=== PATIENT | female | born 1995 | race Caucasian/White ===

== ENCOUNTER 2024-09-05 00:16 | Inpatient (IN) ==
[2024-09-05] MEDS ORDERED: OXYTOCIN 30 UNITS/NSS 30 UNITS/500 ML BAG IV PRN ×2 (00:31→14:09)
[2024-09-05] MEDS ORDERED: LIDOCAINE 1% LOCAL 20 ML VIAL INFIL PRN (00:31)
--- NOTE | 2024-09-05 00:35 | History & Physical Report ---
Date of Service September 05, 2024 Assessment & Plan (1) Encounter for supervision of normal intrauterine in primigravida, antepartum: Plan: Admit to L&D. EFM/toco. Labs. OK for epidural. Admission and Anticipated Discharge Date Admission Date: September 05, 2024 History of Present Illness Chief Complaint: contractions Primary Care Provider: Anita Velasquez 29yo @ 38 08/07, came to L&D with contractions. Acevedo bulb was placed last evening in advance for IOL later today. Acevedo fell out, she is feeling ctx Q 2 minutes. No leaking. No bleeding. + movement. Allergies Allergy/AdvReac Type Severity Reaction Status Date / Time No Known Allergies Allergy Verified 09/04/24 19:53 Home Medications Medication Instructions Recorded Confirmed Type No Known Home Medications 09/04/24 09/04/24 History Patient History Medical History Chicken pox Pharyngitis Surgical History No pertinent past surgical history Family History Denies family history of Ovarian cancer Breast cancer Colorectal cancer Social History Smoking Status: Former smoker Tobacco Type: E-cigarettes / Vaping Second Hand Exposure: No; Do You Dip or Chew Tobacco: No; Hx Alcohol Use: No Hx Substance Use: No Preferred Language: [place] Line Prep [employer] Required: No Beliefs That Will Affect Care: None marital status: marital status details: Ilda [facility] (27) [phone] Current Living Situation: Spouse Current Living Situation Comment: -Ilda current occupational status: employed current occupation: [employer] Feels Safe at Home: Yes Review of Systems All systems reviewed & are unremarkable except as noted in HPI & below Physical Exam Physical Exam: FHT Cat 1 [place] Q 2 - 4 SVE 4cm per RN exam Constitutional: WD/WN, vitals as above Respiratory: normal respiratory effort, lungs clear to auscultation no respiratory distress Cardiovascular: Rate/Rhythm: regular rate and regular rhythm Gastrointestinal (Abdomen): Inspection/Auscultation: abdomen normal to inspection Percussion/Palpation: abdomen soft; abdomen nontender Gravid. No s/s chorio or abruption. Skin: no rashes, warm and dry Psychiatric: A+Ox3, euthymic affect Results & Data Vital Signs (Past 12 Hours) Vital Signs Pulse BP 09/05/24 00:32 103 H 128/79 Coding Level of Care Code None Diagnoses Encounter for supervision of normal intrauterine in primigravida, antepartum Z34.00
[2024-09-05 00:55] LABS: Hematocrit (blood only) 34.8 % (37.0-47.0); Hemoglobin 11.7 g/dl (12.0-16.0); Mean Corpuscular Hemoglobin 28.3 pg (25.0-34.0); Mean Corpuscular Hgb Conc 33.6 g/dL (32.0-36.0); Mean Corpuscular Volume 84.3 fL (80.0-100.0); Mean Platelet Volume 11.5 fL (9.4-12.4); Platelet Count 202 K/uL (130-400); RDW Coefficient of Variation 13.3 % (11.5-14.5); RDW Standard Deviation 40.7 fL (36.4-46.3); Red Blood Count 4.13 M/uL (4.20-5.40)
[2024-09-05] MEDS ORDERED: ePHEDrine sulfate 50 MG/ML AMP IV PRN (01:01)
[2024-09-05] MEDS ORDERED: NALOXONE HCL 0.4 MG/1 ML VIAL/CARP IV PRN (01:01)
[2024-09-05] MEDS ORDERED: NALOXONE HCL 1 MG in SODIUM CHLORIDE 0.9% 1,000 ML IV PRN (01:01)
[2024-09-05] MEDS ORDERED: ROPIVACAINE 0.5% PF 5 MG/ML 20 ML VIAL EPI PRN (01:01)
[2024-09-05] MEDS ORDERED: NALBUPHINE HCL INJ 10 MG/ML AMP IV PRN (01:01)
[2024-09-05] MEDS ORDERED: SODIUM CHLORIDE 0.9% PF INJ 10 ML VIAL EPI PRN (01:01)
[2024-09-05] MEDS ORDERED: fentaNYL citrate PF 100 MCG/2 ML VIAL EPI PRN (01:01)
[2024-09-05] MEDS ORDERED: diphenhydrAMINE 50 MG/ML VIAL IV PRN (01:01)
[2024-09-05] MEDS ORDERED: BUPIVACAINE 0.25% PF 30 ML VIAL EPI PRN (01:01)
[2024-09-05] MEDS ORDERED: LIDOCAINE 2% MPF LOCAL 5 ML VIAL EPI PRN (01:01)
--- NOTE | 2024-09-05 01:03 | Anesthesiology Consultation ---
Date of Service September 05, 2024 Assessment & Plan (1) Encounter for pre-operative examination: Chart Review Chart Review: Patient NOT seen in Pre Admission Testing and Acceptable Risk for Labor Epidural Consults Requested none History Height/Weight Height: 5 ft 9 in Weight: 97.522 kg Allergies Allergy/AdvReac Type Severity Reaction Status Date / Time No Known Allergies Allergy Verified 09/04/24 19:53 Medications Home Medications Medication Instructions Recorded Confirmed Last Taken No Known Home Medications 09/04/24 09/04/24 Unknown Past Medical History Medical History (Updated 09/05/24 @ 01:03 by Tucker Brown MD) Encounter for pre-operative examination Chicken pox Pharyngitis Exercise / Class Metabolic Activity II 4-5 Yardwork/Stairs/Walk up hill Past Family History Family History Denies family history of Ovarian cancer Breast cancer Colorectal cancer Past Surgical History Surgical History No pertinent past surgical history Past Anesthesia History No Hx of Anesthesia Complications and No Family Hx of Anesthesia Complications Social History Smoking Status: Former smoker Do You Dip or Chew Tobacco: No Hx Alcohol Use: No Hx Substance Use: No substance use type: does not use Physical Exam Vital Signs Last Vital Signs Temp 36.8 C 09/05/24 00:36 Pulse 115 H 09/05/24 01:24 Resp 18 09/05/24 00:36 BP 119/75 09/05/24 01:24 Pulse Ox 97 09/05/24 01:21 O2 Del Method Room Air 09/05/24 00:36 Testing Laboratory Results 09/05/24 00:39
[2024-09-05] MEDS ORDERED: SODIUM CHLORIDE 0.9% 50 ML BAG IV STA (01:14)
[2024-09-05] MEDS: fentaNYL citrate PF 100 MCG/2 ML VIAL ONE (01:26)
[2024-09-05] MEDS: BUPIVACAINE 0.25% PF 30 ML VIAL ONE (01:27)
[2024-09-05] MEDS: LIDOCAINE 2%/EPINEPHRINE 1:200,000 20 ML PF ONE (01:28)
[2024-09-05] MEDS: SODIUM CHLORIDE 0.9% 1,000 ML IV SCH (01:30)
[2024-09-05] MEDS: fentANYL 2 MCG/ML BUPIVacaine 0.125%-NSS 100ML BAG ONE (01:37)
[2024-09-05] MEDS: ONDANSETRON INJ 2 MG/ML 2 ML VIAL IV PRN (02:32)
[2024-09-05] MEDS: ePHEDrine sulfate 50 MG/ML AMP ONE (06:26)
[2024-09-05] MEDS: SODIUM CHLORIDE 0.9% PF INJ 10 ML VIAL ONE (06:27)
[2024-09-05] MEDS: fentaNYL citrate PF 100 MCG/2 ML VIAL EPI STA (08:22)
[2024-09-05] MEDS: LIDOCAINE 2%/EPINEPHRINE 1:200,000 20 ML PF EPI STA (08:22)
[2024-09-05] MEDS: BUPIVACAINE 0.25% PF 30 ML VIAL EPI STA (08:22)
[2024-09-05] MEDS: SODIUM CHLORIDE 0.9% PF INJ 10 ML VIAL EPI STA (08:23)
[2024-09-05] MEDS: OXYTOCIN 30 UNITS/NSS 30 UNITS/500 ML BAG IV PRN (08:32)
--- NOTE | 2024-09-05 09:09 | Labor Progress Brief Note ---
Date of Service September 05, 2024 Subjective pt comfortable Assessment & Plan (1) Normal labor: Plan: will see how arom helps labor, c/w pit. fhts categ 1. Admission and Anticipated Discharge Date Admission Date: September 05, 2024 Physical Exam Constitutional: WD/WN, vitals as above Genitourinary: Manual OB Exam: + cervical dilation 5 cm, + cervical effacement 90%, + station -1 and + amniotic fluid (arom) clear OB Exam Monitor Tracing: + external FHT monitor used, + external uterine monitor used (q8, pit at 1), + category I and + normal FHT variability Results & Data Vital Signs (Past 12 Hours) Vital Signs Temp Pulse Resp BP Pulse Ox O2 Del Method 09/05/24 09:01 100 09/05/24 09:01 86 09/05/24 09:01 85 09/05/24 09:01 126/70 09/05/24 08:56 99 09/05/24 08:56 94 H 09/05/24 08:51 100 09/05/24 08:51 85 09/05/24 08:46 100 09/05/24 08:46 85 09/05/24 08:46 85 09/05/24 08:46 128/70 09/05/24 08:41 100 09/05/24 08:41 86 09/05/24 08:36 100 09/05/24 08:36 87 09/05/24 08:31 100 09/05/24 08:31 93 H 09/05/24 08:30 94 H 09/05/24 08:30 132/79 09/05/24 08:26 100 09/05/24 08:26 90 09/05/24 08:21 99 09/05/24 08:21 88 09/05/24 08:16 99 09/05/24 08:16 88 09/05/24 08:15 92 H 09/05/24 08:15 118/64 09/05/24 08:11 98 09/05/24 08:11 85 09/05/24 08:06 100 09/05/24 08:06 84 09/05/24 08:02 86 09/05/24 08:02 124/69 09/05/24 08:01 99 09/05/24 08:01 86 09/05/24 08:00 16 09/05/24 08:00 16 09/05/24 07:56 99 09/05/24 07:56 84 09/05/24 07:51 100 09/05/24 07:51 79 09/05/24 07:46 100 09/05/24 07:46 82 09/05/24 07:46 81 09/05/24 07:46 120/66 09/05/24 07:41 100 09/05/24 07:41 82 09/05/24 07:36 100 09/05/24 07:36 88 09/05/24 07:31 100 09/05/24 07:31 93 H 09/05/24 07:30 89 09/05/24 07:30 127/74 09/05/24 07:26 100 09/05/24 07:26 96 H 09/05/24 07:21 100 09/05/24 07:21 95 H 09/05/24 07:18 Room Air 09/05/24 07:17 18 09/05/24 07:17 98.4 F 18 09/05/24 07:16 100 09/05/24 07:16 85 09/05/24 07:16 82 09/05/24 07:16 131/68 09/05/24 07:11 100 09/05/24 07:11 81 09/05/24 07:06 100 09/05/24 07:06 84 09/05/24 07:01 100 09/05/24 07:01 85 09/05/24 07:01 126/70 09/05/24 06:56 100 09/05/24 06:56 94 H 09/05/24 06:51 100 09/05/24 06:51 89 09/05/24 06:46 100 09/05/24 06:46 91 H 09/05/24 06:46 90 09/05/24 06:46 125/69 09/05/24 06:41 100 09/05/24 06:41 78 09/05/24 06:36 100 09/05/24 06:36 80 09/05/24 06:31 100 09/05/24 06:31 90 09/05/24 06:31 121/69 09/05/24 06:26 99 09/05/24 06:26 88 09/05/24 06:21 99 09/05/24 06:21 80 09/05/24 06:16 99 09/05/24 06:16 93 H 09/05/24 06:15 94 H 09/05/24 06:15 118/75 09/05/24 06:11 98 09/05/24 06:11 92 H 09/05/24 06:07 16 09/05/24 06:07 98.2 F 16 09/05/24 06:06 99 09/05/24 06:06 103 H 09/05/24 06:01 98 09/05/24 06:01 86 09/05/24 06:00 81 09/05/24 06:00 114/67 09/05/24 05:56 98 09/05/24 05:56 90 09/05/24 05:51 98 09/05/24 05:51 81 09/05/24 05:46 97 09/05/24 05:46 81 09/05/24 05:45 88 09/05/24 05:45 112/68 09/05/24 05:41 97 09/05/24 05:41 76 09/05/24 05:36 97 09/05/24 05:36 86 09/05/24 05:31 98 09/05/24 05:31 84 09/05/24 05:30 85 09/05/24 05:30 114/09/05/24 05:26 98 09/05/24 05:26 80 09/05/24 05:21 97 09/05/24 05:21 85 09/05/24 05:16 98 09/05/24 05:16 80 09/05/24 05:16 110/66 09/05/24 05:11 97 09/05/24 05:11 88 09/05/24 05:06 97 09/05/24 05:06 89 09/05/24 05:01 97 09/05/24 05:01 80 09/05/24 05:01 88 09/05/24 05:01 112/56 L 09/05/24 04:56 97 09/05/24 04:56 91 H 09/05/24 04:51 97 09/05/24 04:51 86 09/05/24 04:46 97 09/05/24 04:46 83 09/05/24 04:45 86 09/05/24 04:45 108/64 09/05/24 04:41 97 09/05/24 04:41 86 09/05/24 04:36 98 09/05/24 04:36 88 09/05/24 04:31 97 09/05/24 04:31 89 09/05/24 04:29 93 H 09/05/24 04:29 107/63 09/05/24 04:26 98 09/05/24 04:26 89 09/05/24 04:21 98 09/05/24 04:21 93 H 09/05/24 04:16 98 09/05/24 04:16 89 09/05/24 04:14 95 H 09/05/24 04:14 107/55 L 09/05/24 04:11 96 09/05/24 04:11 89 09/05/24 04:06 97 09/05/24 04:06 94 H 09/05/24 04:01 97 09/05/24 04:01 88 09/05/24 04:01 118/71 09/05/24 03:56 98 09/05/24 03:56 95 H 09/05/24 03:51 97 09/05/24 03:51 78 09/05/24 03:46 98 09/05/24 03:46 81 09/05/24 03:45 89 09/05/24 03:45 120/67 09/05/24 03:41 97 09/05/24 03:41 92 H 09/05/24 03:36 97 09/05/24 03:36 92 H 09/05/24 03:31 97 09/05/24 03:31 92 H 09/05/24 03:29 93 H 09/05/24 03:29 119/69 09/05/24 03:26 97 09/05/24 03:26 85 09/05/24 03:21 97 09/05/24 03:21 85 09/05/24 03:16 97 09/05/24 03:16 81 09/05/24 03:14 105 H 09/05/24 03:14 118/66 09/05/24 03:11 97 09/05/24 03:11 90 09/05/24 03:06 97 09/05/24 03:06 86 09/05/24 03:01 96 09/05/24 03:01 85 09/05/24 02:59 97 H 09/05/24 02:59 122/64 09/05/24 02:56 97 09/05/24 02:56 96 H 09/05/24 02:51 97 09/05/24 02:51 95 H 09/05/24 02:46 97 09/05/24 02:46 91 H 09/05/24 02:46 126/71 09/05/24 02:41 98 09/05/24 02:41 104 H 09/05/24 02:36 99 09/05/24 02:36 96 H 09/05/24 02:31 99 09/05/24 02:31 98 H 09/05/24 02:30 114 H 09/05/24 02:30 114/68 09/05/24 02:26 98 09/05/24 02:26 96 H 09/05/24 02:21 99 09/05/24 02:21 100 H 09/05/24 02:20 16 09/05/24 02:20 98.4 F 16 09/05/24 02:16 98 09/05/24 02:16 108 H 09/05/24 02:11 97 09/05/24 02:11 101 H 09/05/24 02:11 116/61 09/05/24 02:06 97 09/05/24 02:06 95 H 09/05/24 02:05 98 H 09/05/24 02:05 118/62 09/05/24 02:01 96 09/05/24 02:01 95 H 09/05/24 02:00 94 H 09/05/24 02:00 118/64 09/05/24 01:56 98 09/05/24 01:56 105 H 09/05/24 01:55 99 H 09/05/24 01:55 124/66 09/05/24 01:51 97 09/05/24 01:51 100 H 09/05/24 01:49 96 H 09/05/24 01:49 125/67 09/05/24 01:46 98 09/05/24 01:46 104 H 09/05/24 01:44 101 H 09/05/24 01:44 119/59 L 09/05/24 01:42 106 H 09/05/24 01:42 120/56 L 09/05/24 01:41 98 09/05/24 01:41 106 H 09/05/24 01:40 101 H 09/05/24 01:40 124/60 09/05/24 01:38 107 H 09/05/24 01:38 118/62 09/05/24 01:36 97 09/05/24 01:36 109 H 09/05/24 01:36 121/61 09/05/24 01:34 104 H 09/05/24 01:34 128/64 09/05/24 01:32 112 H 09/05/24 01:32 127/70 09/05/24 01:31 97 09/05/24 01:31 106 H 09/05/24 01:30 105 H 09/05/24 01:30 127/71 09/05/24 01:28 110 H 09/05/24 01:28 123/76 09/05/24 01:26 98 09/05/24 01:26 113 H 09/05/24 01:26 104 H 09/05/24 01:26 123/76 09/05/24 01:24 115 H 09/05/24 01:24 119/75 09/05/24 01:21 97 09/05/24 01:21 102 H 09/05/24 01:16 98 09/05/24 01:16 108 H 09/05/24 01:11 99 09/05/24 01:11 105 H 09/05/24 01:06 98 09/05/24 01:06 100 H 09/05/24 01:01 100 09/05/24 01:01 101 H 09/05/24 00:36 98.2 F 103 H 18 128/79 Room Air 09/05/24 00:32 98.2 F 103 H 18 128/79 Coding Level of Care Code None Diagnoses Normal labor O80; Z37.9
[2024-09-05] MEDS: fentANYL 2 MCG/ML BUPIVacaine 0.125%-NSS 100ML BAG EPI PRN (10:46)
[2024-09-05] MEDS ORDERED: NURSING L&D Epidural Breakthrough Pain Update ONE (11:20)
--- NOTE | 2024-09-05 14:06 | Delivery Summary ---
Vaginal Delivery Summary Date of Service September 05, 2024 Vaginal Delivery Summary and 3rd Degree LAC (partial) The patient dilated to complete and pushed to deliver a viable female Apgars 8 and 9 via over partial 3rd degree perineal laceration. Loose nuchal x 1 reduced. Mouth and nose bulb suctioned at perineum. Shoulders and body delivered with ease. was vigorous and crying at . Cord clamped at 30 seconds of life and to maternal abdomen where the cord was then doubly clamped and cut. Placenta delivered spontaneously and intact, three- vessel cord. Hemostasis achieved with dilute pitocin and uterine massage and drainage of the bladder for approximately 100 cc under sterile conditions. Laceration repaired in layers in routine fashion with 2-0 and 3-0 vicryl. Right labia tear reapproximated with 4-0 vicryl. Cervix and sulci intact. QBL 309 cc. Mother and baby stable recovery. [facility] [place]aginal Delivery Charge Delivery Type Details: and 3rd Degree LAC (partial)
[2024-09-05] MEDS ORDERED: HYDROCORTISONE ACETATE 25 MG SUPP PR PRN (14:09)
[2024-09-05] MEDS ORDERED: oxyCODONE/ACETAMINOPHEN 5mg/325mg TAB PO PRN (14:09)
[2024-09-05] MEDS: DIPHTHER/TETAN/PERTUS Vaccine (Tdap, Adol/Adult) 0.5mL IM ONE (15:22)
--- NOTE | 2024-09-05 15:29 | Anesthesia Procedure Note ---
Date of Service September 05, 2024 Anesthesia Post Epidural Note Vital Signs Vital Signs: Temp Pulse Resp BP Pulse Ox O2 Del Method 36.9 C 81 16 132/70 99 Room Air 09/05/24 15:05 09/05/24 15:21 09/05/24 15:05 09/05/24 15:21 09/05/24 15:01 09/05/24 07:18 Pain Intensity Back: Pain Intensity: 0 Notes Mental Status: alert / awake / arousable and participated in evaluation Nausea / Vomiting: adequately controlled Pain: adequately controlled Airway Patency, RR, SpO2: stable & adequate BP & HR: stable & adequate Hydration State: stable & adequate Neuraxial Anesthesia: was administered and sensory block resolved Anesthetic Complications: no major complications apparent and Pt Satisfied with anesthetic care Epidural: Removed without complications and With tip intact
[2024-09-05] MEDS: BENZOCAINE 20% SPRY 85 APPLN/85 GM CAN EXT PRN (16:26)
[2024-09-05] MEDS: ACETAMINOPHEN 325 MG TAB PO PRN (19:55)
[2024-09-05] MEDS: IBUPROFEN 600 MG TAB PO PRN (19:55)
[2024-09-05] MEDS: DOCUSATE SODIUM 100 MG CAP PO SCH (21:21)
--- NOTE | 2024-09-06 07:46 | Obstetrical Progress Note ---
Date of Service September 06, 2024 Assessment & Plan (1) care and examination: Plan stable, routine care. breast feeding, rhpos, ri. Subjective Ambulation: ambulating normally Voiding: no voiding problems Diet Tolerance:: regular diet Lochia:: Small Feeding Type:: breast feeding bottom sore Physical Exam Constitutional WD/WN, vitals as above Respiratory normal respiratory effort, lungs clear to auscultation Cardiovascular Rate/Rhythm: regular rate and regular rhythm Gastrointestinal (Abdomen) Inspection/Auscultation: abdomen normal to inspection Percussion/Palpation: abdomen soft Fundus firm 2cm down Musculoskeletal nt calves no edema Neurologic grossly normal Psychiatric A+Ox3, euthymic affect Results & Data Vital Signs (Past 12 Hours) Vital Signs Temp Pulse Resp BP Pulse Ox O2 Del Method 09/06/24 05:00 98.2 F 68 18 122/70 98 Room Air 09/06/24 00:00 97.9 F 79 16 116/71 98 Room Air
[2024-09-06] MEDS: PRENATAL VITAMIN 1 TAB PO SCH (08:37)
[2024-09-06 16:49] VITALS: O2SAT 98
[2024-09-06] MEDS: bisacodyL 5 MG TABEC PO SCH (20:08)
--- NOTE | 2024-09-07 07:33 | Obstetrical Progress Note ---
Date of Service September 07, 2024 Assessment & Plan (1) Vaginal delivery: Plan: Both mom and baby doing well. Discharge today as per protocol. Suggested to continue Miralax for another week. Keep stool soft. Admission and Anticipated Discharge Date Admission Date: September 05, 2024 Supervising Physician Co-Signing Physician Notes Resident Physician Supervision Note: I was present with Dr. Lomax during the history and exam. I discussed the case with the resident and agree with the findings and plan as documented in the note. Any exceptions or clarifications are listed here: [None] Documented By: Elayne Willard MD, FACOG Subjective 2nd PP Day following with 3rd deg tear in 31 years at 40+1 week POG. Complain of soreness in tear site. No active bleeding or swelliing. No issue in urination. Both mom and baby doing well. Pain: Mild, intermittent Lochia: Moderate Diet: Regular Ob diet Gas: Passed gas, waiting for BM. Peeing: Normal, no bladder distension Ambulation: Normally Review of Systems Review of Systems: No SOB, chest pain, leg pain No dizziness, headache, palpitation No Blurring of vision , fever Physical Exam Physical Exam: General: Alert and oriented. No acute distress. CVS: S1 S2+ No murmurs, regular rhythm. Respiratory: CTA bilaterally. No rhonchi, wheezes, or crackles. No increased work of breathing. Abdomen: Bowel sound +. Soft, nontender Uterus: Fundus firm and palpable few cm below the umbilicus. Vagina inspection: No active bleeding, No swelling, normally healing tear Lower extremities: No LE edema. No deep calf pain. Results & Data Vital Signs (Past 12 Hours) Vital Signs Temp Pulse Resp BP O2 Del Method 09/07/24 00:00 36.6 C 72 18 109/67 Room Air 09/06/24 19:45 36.6 C 80 18 123/80 Room Air Resident Activity Tracking Resident Involvement: Resident Care Provided Care Provided: OB Delivery
[2024-09-07 09:34] VITALS: PULSE 79; RESP 16; TEMP 98.2
[2024-09-07 10:31] VITALS: BP 117/69
== END 2024-09-07 12:30 | disposition home or self-care (01) | DRG 768 ==
LOC: 4S1 00:16 → 4E2 16:40